=== PATIENT | male | born 1990 | race Caucasian/White ===

== ENCOUNTER 2016-03-08 09:05 | Emergency (ER) | payer OTHER ==
[2016-03-08] MEDS ORDERED: IBUPROFEN 600 MG TABLET ONE (09:52)
[2016-03-08] MEDS ORDERED: ACETAMINOPHEN 325 MG TABLET ONE (09:53)
--- NOTE | 2016-03-08 10:13 | RAD ---
CHEST 2 VIEWS HISTORY: Cough and fever. Frontal and lateral chest radiographs dated 03/08/2016. COMPARISON: None. FINDINGS: FOCAL AIRSPACE OPACITY: No gross airspace consolidation. PLEURAL EFFUSION: None. CARDIOMEDIASTINAL SILHOUETTE: Nonenlarged. PNEUMOTHORAX: None identified. OSSEOUS STRUCTURES: No grossly destructive lesions. IMPRESSION: No acute cardiopulmonary process noted.
== END 2016-03-08 11:08 | disposition home or self-care (01) ==
LOC: ED 09:05
DX: J09.X2 Influenza due to identified novel influenza A virus with other respiratory manifestations (principal)